=== PATIENT | female | born 1950 | race Asian ===

== ENCOUNTER 2016-11-13 08:02 | Inpatient (IN) | payer BC ==
[~2016-11-13] VITALS: Ht 152.4 cm; Wt 74.9 kg
[2016-11-13] MEDS ORDERED: ASPIRIN 81 MG TABLET CHEW ONE (08:46)
[2016-11-13] MEDS ORDERED: LORazepam 2 MG/ML, 1ML ONE (08:47)
[2016-11-13] MEDS ORDERED: ONDANSETRON 2MG/ML, 2ML ONE ×2 (08:47→11:25)
[2016-11-13] MEDS ORDERED: SODIUM CHLORIDE FLUSH 10ML SYR IVF ONE ×2 (09:00→10:00)
[2016-11-13] MEDS ORDERED: LORazepam 2 MG/ML, 1ML IVPush ONE (09:00)
[2016-11-13] MEDS ORDERED: SODIUM CHLORIDE 0.9% 1,000ML IVBOLUS ONE (09:00)
[2016-11-13] MEDS ORDERED: ONDANSETRON 2MG/ML, 2ML IVPush ONE (09:00)
[2016-11-13] MEDS ORDERED: ASPIRIN 81 MG TABLET CHEW PO ONE (09:00)
[2016-11-13 09:09] LABS: HEMATOCRIT 36.9 % (34.6-47.8); HEMOGLOBIN 12.2 g/dL (11.7-16.4); WHITE BLOOD COUNT 8.1 x10^3/uL (3.4-10)
[2016-11-13 09:12] LABS: BLOOD UREA NITROGEN 10 mg/dL (7-18)
[2016-11-13 09:17] LABS: ASPARTATE AMINO TRANSFERASE 19 U/L (15-37)
[2016-11-13 09:19] LABS: IS PT STATUS REG ER OR PRE ER? YES
[2016-11-13] MEDS ORDERED: NITROGLYCERIN SINGLE TAB 0.4 MG SL ONE (09:59)
[2016-11-13] MEDS ORDERED: MORPHINE SULFATE 4 MG/ML, 1ML IVPush PRN (10:00)
[2016-11-13] MEDS ORDERED: NITROGLYCERIN SINGLE TAB 0.4 MG SL PRN ×2 (10:00→13:00)
[2016-11-13] MEDS ORDERED: AMLO2.5T PO (10:19)
[2016-11-13] MEDS ORDERED: LISI5TAB7 PO (10:19)
[2016-11-13] MEDS ORDERED: ACET-1600 PO (10:19)
[2016-11-13] MEDS ORDERED: ASPI-496 PO (10:19)
[2016-11-13] MEDS ORDERED: PANT40TA5 PO (10:19)
[2016-11-13] MEDS ORDERED: GABA800T2 PO (10:19)
[2016-11-13] MEDS ORDERED: LISINOPRIL 5 MG TABLET PO SCH (11:00)
[2016-11-13] MEDS ORDERED: morphine SULFATE 10 MG/ML, 1ML IVPush PRN (11:00)
[2016-11-13] MEDS ORDERED: hydrALAzine 20 MG/ML, 1ML IVPush PRN (11:00)
[2016-11-13] MEDS ORDERED: ACETAMINOPHEN 500 MG TABLET PO PRN (11:00)
[2016-11-13] MEDS ORDERED: TEMAZEPAM 15 MG CAPSULE PO PRN (11:00)
[2016-11-13] MEDS ORDERED: ONDANSETRON 2MG/ML, 2ML IVPush PRN (11:00)
[2016-11-13] MEDS ORDERED: HYDROcodone/APAP 5/325 TABLET PO PRN (11:00)
[2016-11-13] MEDS ORDERED: AMLODIPINE 2.5 MG TABLET PO SCH (11:00)
[2016-11-13] MEDS ORDERED: ATOR80TA75 PO (11:51)
[2016-11-13] MEDS ORDERED: BACL20TA PO (11:51)
[2016-11-13 11:58] VITALS: BP 117/78
[2016-11-13] MEDS ORDERED: POTASSIUM CHLORIDE 20 MEQ TAB.ER.PRT PO ONE (12:00)
[2016-11-13] MEDS ORDERED: NITROGLYCERIN 0.4 MG BOTTLE (25 TABS) SL ONE (12:21)
[2016-11-13] MEDS ORDERED: PROCHLORPERAZINE 5 MG/ML, 2ML IVPush PRN (12:30)
[2016-11-13] MEDS: ENOXAPARIN 40 MG/0.4 ML SQ SCH (12:48)
[2016-11-13] MEDS: PANTOPROZOLE 40MG TABLET PO SCH ×2 (12:48→21:43)
[2016-11-13] MEDS: ASPIRIN 81 MG TABLET EC PO SCH (12:48)
[2016-11-13] MEDS: GABAPENTIN 300 MG CAPSULE PO SCH ×3 (12:48→21:00)
[2016-11-13] MEDS: SODIUM CHLORIDE 0.9% 1,000 ML IV SCH ×2 (12:49→21:42)
[2016-11-13 13:00] VITALS: BP 104/72
[2016-11-13 15:01] VITALS: BP 123/78
[2016-11-13 19:05] VITALS: BP 104/69
[2016-11-13 20:02] LABS: IS PT STATUS REG ER OR PRE ER? NO
[2016-11-13] MEDS ORDERED: SIMVASTATIN 20 MG TABLET PO SCH (21:00)
[2016-11-14 02:22] VITALS: BP 102/66
[2016-11-14 05:05] LABS: BLOOD UREA NITROGEN 6 mg/dL (7-18)
[2016-11-14 05:14] LABS: IS PT STATUS REG ER OR PRE ER? NO
[2016-11-14 07:39] VITALS: BP 138/76
[2016-11-14] MEDS ORDERED: REGADENOSON 0.4 MG/5 ML SYRINGE ONE ×2 (08:13→09:19)
[2016-11-14] MEDS ORDERED: GABAPENTIN 300 MG CAPSULE PO SCH (09:00)
[2016-11-14] MEDS ORDERED: AMLODIPINE 2.5 MG TABLET PO SCH (09:00)
[2016-11-14] MEDS ORDERED: LISINOPRIL 5 MG TABLET PO SCH (09:00)
[2016-11-14] MEDS: PANTOPROZOLE 40MG TABLET PO SCH (10:56)
[2016-11-14] MEDS: ASPIRIN 81 MG TABLET EC PO SCH (10:56)
[2016-11-14] MEDS: ENOXAPARIN 40 MG/0.4 ML SQ SCH (10:56)
[2016-11-14] MEDS: SODIUM CHLORIDE 0.9% 1,000 ML IV SCH (10:56)
[2016-11-14] MEDS ORDERED: PANT40TA5 PO (13:39)
[2016-11-14] MEDS ORDERED: BACL20TA PO (13:56)
[2016-11-14 14:21] VITALS: BP 116/79
== END 2016-11-14 16:00 | disposition home or self-care (01) | DRG 392 ==
LOC: ED 09:52 → 5SO 09:58 → SUATTDRO 10:34 → DCLOUNGE 11-14 15:32
PROVIDERS: ADMIT Internal Medicine; ATTEND Internal Medicine
DX: K21.9 Gastro-esophageal reflux disease without esophagitis (principal); E11.65 Type 2 diabetes mellitus with hyperglycemia; I10 Essential (primary) hypertension; E87.1 Hypo-osmolality and hyponatremia; R11.2 Nausea with vomiting, unspecified; E66.9 Obesity, unspecified; E78.5 Hyperlipidemia, unspecified; E87.6 Hypokalemia; Z96.653 Presence of artificial knee joint, bilateral; M54.9 Dorsalgia, unspecified; G89.29 Other chronic pain; Z79.82 Long term (current) use of aspirin; Z80.0 Family history of malignant neoplasm of digestive organs; Z90.49 Acquired absence of other specified parts of digestive tract; Z68.32 Body mass index [BMI] 32.0-32.9, adult; Z88.0 Allergy status to penicillin; Z82.49 Family history of ischemic heart disease and other diseases of the circulatory system
CPT/HCPCS: 36415; 71010; 78452; 80048; 80053; 82306; 82962; 83036; 84439; 84443; 84484; 85025; 93005; 93017; 96374; 96375; J1650; J2405; J2785; A9502; C9898; J0780; J2060; J7030